=== PATIENT | female | born 1940 | race Caucasian/White ===

== ENCOUNTER 2017-11-28 20:01 | Inpatient (IN) ==
[2017-11-28] MEDS ORDERED: LEVOFLOXACIN INJ 750 MG in PREMIX 1 EACH IV STA (20:27)
[2017-11-28] MEDS ORDERED: ONDANSETRON 4 MG/2 ML VIAL IV STA (20:27)
[2017-11-28] MEDS ORDERED: methylPREDNISolone SOD SUC 125 MG/2 ML VIAL IV STA (20:27)
[2017-11-28] MEDS ORDERED: ALBUTEROL 2.5 MG/3 ML NEB RESP TX SCH (20:30)
[2017-11-28] MEDS ORDERED: LEVOFLOXACIN INJ 150 ML IV ONE (20:53)
[2017-11-28 21:04] LABS: Basophils # 0.1 10*3/uL (0.0-0.2); Basophils % 0.5 % (0.0-0.8); Eosinophils # 0.3 10*3/uL (0.0-0.87); Eosinophils % 1.6 % (0.00-10.9); Hematocrit 32.9 VOL% (35.7-47.0); Hemoglobin 11.2 GM/DL (12.0-16.0); Immature Granulocytes % 2.8 %; Immature Granulocytes Absolute 0.48 #; Lymphocytes # 1.9 10*3/uL (1.4-4.0); Lymphocytes % 11.1 % (21.3-54.2); Mean Corpuscular Hemoglobin 33 PG (27-34); Mean Corpuscular Volume 96.5 FL (87-102); Mean Platelet Volume 9.9 FL (9.6-12.0); Monocytes # 1.9 10*3/uL (0.11-0.8); Neutrophils # 12.5 10*3/uL (1.4-7.4); Platelet Count 268 T/CUMM (130-400); Red Blood Count 3.41 MC/CUMM (3.8-5.5); Red Cell Distribution Width 13.4 % (9.3-17.3); White Blood Count 17.2 T/CUMM (4-12)
[2017-11-28 21:14] LABS: PT Patient Result 10.7 SECS; Partial Thromboplastin Time 30.6 SECS (0-40)
[2017-11-28 21:24] LABS: Alanine Aminotransferase 29 U/L (13-56); Albumin 3.2 G/DL (3.4-5.0); Alkaline Phosphatase 93 U/L (45-117); Aspartate Amino Transferase 17 U/L (0-37); Blood Urea Nitrogen 19 MG/DL (7-18); Calcium 8.8 MG/DL (8.5-10.1); Glucose 123 MG/DL (74-106); Osmolality,Calculated 268.4 MOS/KG (273-304); Potassium 2.9 MMOL/L (3.5-5.1); Sodium 133 MMOL/L (136-145); Total Protein 7.6 G/DL (6.4-8.3)
[2017-11-28] MEDS ORDERED: MORPHINE 4 MG/1 ML VIAL IV PRN (23:48)
[2017-11-28] MEDS ORDERED: DEXTROSE 50% 25 GM/50 ML VIAL IV PRN (23:48)
[2017-11-28] MEDS ORDERED: GLUCAGON 1 MG VIAL IM PRN (23:48)
[2017-11-28] MEDS ORDERED: ONDANSETRON 4 MG/2 ML VIAL IV PRN (23:48)
[2017-11-29] MEDS: SODIUM CHLORIDE 0.9% 1,000 ML IV SCH ×2 (01:42→15:47)
[2017-11-29] MEDS: POTASSIUM CHLORIDE 20 MEQ TABLET PO PRN ×2 (02:57→06:04)
[2017-11-29] MEDS: AZITHROMYCIN INJ 500 MG in SODIUM CHLORIDE 0.9% 250 ML IV SCH (02:57)
[2017-11-29] MEDS: cefTRIAXone 1,000 MG in SYRINGE 1 EACH IV SCH (02:58)
[2017-11-29] MEDS: guaiFENesin 200 MG/10 ML UDCUP PO PRN ×3 (06:04→19:59)
[2017-11-29] MEDS ORDERED: INSULIN REGULAR 100 UNIT/ML SUBCUT SCH (07:30)
[2017-11-29] MEDS ORDERED: metFORMIN 500 MG TABLET PO SCH (08:00)
[2017-11-29 08:22] LABS: Calcium 8.4 MG/DL (8.5-10.1)
[2017-11-29 08:23] LABS: Osmolality,Calculated 270.7 MOS/KG (273-304)
[2017-11-29] MEDS ORDERED: ENOXAPARIN 30 MG/0.3 ML SYRINGE SUBCUT SCH (09:00)
[2017-11-29] MEDS: methylPREDNISolone SOD SUC 40 MG/1 ML VIAL IV SCH ×2 (09:24→21:09)
[2017-11-29] MEDS: PANTOPRAZOLE 40 MG TABLET PO SCH (09:25)
[2017-11-29] MEDS: ESCITALOPRAM 10 MG TABLET PO SCH (09:25)
[2017-11-29] MEDS: DOCUSATE SODIUM 100 MG CAPSULE PO SCH ×2 (09:25→21:04)
[2017-11-29] MEDS: NICOTINE 14 MG/24 HR PATCH TRANSDERM PRN (10:12)
[2017-11-29] MEDS ORDERED: DEXTROSE 50% 25 GM/50 ML VIAL IV PRN (10:25)
[2017-11-29] MEDS ORDERED: GLUCAGON 1 MG VIAL IM PRN (10:25)
[2017-11-29] MEDS ORDERED: ALBUTEROL/IPRATROPIUM 3 ML NEB RESP TX PRN (11:07)
[2017-11-29] MEDS: OSELTAMIVIR 30 MG CAPSULE PO SCH ×2 (12:14→21:04)
[2017-11-29] MEDS: MONTELUKAST 10 MG TABLET PO SCH (12:14)
[2017-11-29] MEDS: INSULIN REGULAR 100 UNIT/ML SUBCUT SCH ×3 (12:15→21:08)
[2017-11-29] MEDS: ALBUTEROL/IPRATROPIUM 3 ML NEB RESP TX SCH ×2 (15:19→19:08)
[2017-11-29] MEDS: FLUTICASONE/SALMETEROL 250-50 DISKUS 14 DOSE INH SCH (21:01)
[2017-11-29] MEDS: ZALEPLON 5 MG CAPSULE PO PRN (21:03)
[2017-11-30] MEDS: guaiFENesin 200 MG/10 ML UDCUP PO PRN ×2 (00:37→22:58)
[2017-11-30] MEDS: cefTRIAXone 1,000 MG in SYRINGE 1 EACH IV SCH (03:00)
[2017-11-30] MEDS: SODIUM CHLORIDE 0.9% 1,000 ML IV SCH ×2 (03:23→16:10)
[2017-11-30] MEDS: AZITHROMYCIN INJ 500 MG in SODIUM CHLORIDE 0.9% 250 ML IV SCH (03:24)
[2017-11-30 05:50] LABS: Basophils % 0.2 % (0.0-0.8); Eosinophils % 0.1 % (0.00-10.9); Hematocrit 30.6 VOL% (35.7-47.0); Hemoglobin 10.2 GM/DL (12.0-16.0); Immature Granulocytes % 5.9 %; Immature Granulocytes Absolute 0.95 #; Lymphocytes # 1.3 10*3/uL (1.4-4.0); Lymphocytes % 8.1 % (21.3-54.2); Mean Corpuscular HGB Conc 33.3 GM/DL (32-36); Mean Corpuscular Hemoglobin 33 PG (27-34); Mean Corpuscular Volume 97.5 FL (87-102); Mean Platelet Volume 10.2 FL (9.6-12.0); Monocytes # 1.2 10*3/uL (0.11-0.8); Monocytes % 7.3 % (1.7-12.7); Neutrophils # 12.7 10*3/uL (1.4-7.4); Neutrophils % 78.4 % (38.7-73.9); Platelet Count 275 T/CUMM (130-400); Red Blood Count 3.14 MC/CUMM (3.8-5.5); Red Cell Distribution Width 13.2 % (9.3-17.3); White Blood Count 16.1 T/CUMM (4-12)
[2017-11-30 06:12] LABS: Albumin 2.6 G/DL (3.4-5.0); Bilirubin,Total 0.8 MG/DL (0.2-1.0); Calcium 8.3 MG/DL (8.5-10.1); Osmolality,Calculated 277.1 MOS/KG (273-304); Potassium 3.9 MMOL/L (3.5-5.1); Total Protein 6.6 G/DL (6.4-8.3)
[2017-11-30 06:45] LABS: Band Neutrophils 2 % (0-10); Lymphocytes 5 % (20-55); Segmented Neutrophils 88 % (50-85); Total Cells Counted 100
[2017-11-30 06:46] LABS: Platelet Estimate Normal
[2017-11-30 06:47] LABS: Hypochromasia Slight
[2017-11-30] MEDS: ALBUTEROL/IPRATROPIUM 3 ML NEB RESP TX SCH ×4 (07:20→23:10)
[2017-11-30] MEDS: OSELTAMIVIR 30 MG CAPSULE PO SCH ×2 (09:03→20:42)
[2017-11-30] MEDS: methylPREDNISolone SOD SUC 40 MG/1 ML VIAL IV SCH ×2 (09:03→20:42)
[2017-11-30] MEDS: ESCITALOPRAM 10 MG TABLET PO SCH (09:03)
[2017-11-30] MEDS: FLUTICASONE/SALMETEROL 250-50 DISKUS 14 DOSE INH SCH ×2 (09:03→20:50)
[2017-11-30] MEDS: ENOXAPARIN 40 MG/0.4 ML SYRINGE SUBCUT SCH (09:03)
[2017-11-30] MEDS: MONTELUKAST 10 MG TABLET PO SCH (09:03)
[2017-11-30] MEDS: DOCUSATE SODIUM 100 MG CAPSULE PO SCH ×2 (09:03→20:42)
[2017-11-30] MEDS: PANTOPRAZOLE 40 MG TABLET PO SCH (09:03)
[2017-11-30] MEDS: INSULIN REGULAR 100 UNIT/ML SUBCUT SCH ×4 (09:03→20:43)
[2017-11-30] MEDS: NICOTINE 14 MG/24 HR PATCH TRANSDERM PRN (09:04)
[2017-11-30] MEDS: ZALEPLON 5 MG CAPSULE PO PRN (20:48)
[2017-12-01] MEDS: cefTRIAXone 1,000 MG in SYRINGE 1 EACH IV SCH (02:50)
[2017-12-01] MEDS: AZITHROMYCIN INJ 500 MG in SODIUM CHLORIDE 0.9% 250 ML IV SCH (02:54)
[2017-12-01] MEDS: guaiFENesin 200 MG/10 ML UDCUP PO PRN ×3 (02:56→16:40)
[2017-12-01] MEDS: SODIUM CHLORIDE 0.9% 1,000 ML IV SCH ×2 (04:09→17:17)
[2017-12-01] MEDS: ALBUTEROL/IPRATROPIUM 3 ML NEB RESP TX SCH ×4 (07:22→19:40)
[2017-12-01] MEDS: NICOTINE 14 MG/24 HR PATCH TRANSDERM PRN (08:27)
[2017-12-01] MEDS: MONTELUKAST 10 MG TABLET PO SCH (08:28)
[2017-12-01] MEDS: PANTOPRAZOLE 40 MG TABLET PO SCH (08:28)
[2017-12-01] MEDS: ESCITALOPRAM 10 MG TABLET PO SCH (08:28)
[2017-12-01] MEDS: ENOXAPARIN 40 MG/0.4 ML SYRINGE SUBCUT SCH (08:28)
[2017-12-01] MEDS: OSELTAMIVIR 30 MG CAPSULE PO SCH ×2 (08:28→20:31)
[2017-12-01] MEDS: INSULIN REGULAR 100 UNIT/ML SUBCUT SCH ×4 (08:28→20:31)
[2017-12-01] MEDS: FLUTICASONE/SALMETEROL 250-50 DISKUS 14 DOSE INH SCH ×2 (08:29→22:20)
[2017-12-01] MEDS: DOCUSATE SODIUM 100 MG CAPSULE PO SCH ×2 (08:30→20:31)
[2017-12-01] MEDS: methylPREDNISolone SOD SUC 40 MG/1 ML VIAL IV SCH (08:31)
[2017-12-01] MEDS: FLUCONAZOLE INJ 200 MG in PREMIX 1 EACH IV SCH (10:43)
[2017-12-01] MEDS: ZALEPLON 5 MG CAPSULE PO PRN (20:31)
[2017-12-02] MEDS: cefTRIAXone 1,000 MG in SYRINGE 1 EACH IV SCH (03:05)
[2017-12-02] MEDS: AZITHROMYCIN INJ 500 MG in SODIUM CHLORIDE 0.9% 250 ML IV SCH (03:50)
[2017-12-02] MEDS: SODIUM CHLORIDE 0.9% 1,000 ML IV SCH ×2 (04:52→08:53)
[2017-12-02 05:32] LABS: Basophils # 0.1 10*3/uL (0.0-0.2); Basophils % 0.6 % (0.0-0.8); Eosinophils # 0.1 10*3/uL (0.0-0.87); Eosinophils % 0.5 % (0.00-10.9); Hematocrit 31.6 VOL% (35.7-47.0); Hemoglobin 10.8 GM/DL (12.0-16.0); Immature Granulocytes % 11.5 %; Immature Granulocytes Absolute 1.63 #; Lymphocytes # 2.7 10*3/uL (1.4-4.0); Lymphocytes % 19.1 % (21.3-54.2); Mean Corpuscular HGB Conc 34.2 GM/DL (32-36); Mean Corpuscular Hemoglobin 33 PG (27-34); Mean Platelet Volume 9.3 FL (9.6-12.0); Monocytes % 6.9 % (1.7-12.7); NRBC # 0.05 10*3/uL; Neutrophils # 8.7 10*3/uL (1.4-7.4); Neutrophils % 61.4 % (38.7-73.9); Platelet Count 273 T/CUMM (130-400); Red Blood Count 3.29 MC/CUMM (3.8-5.5); Red Cell Distribution Width 13.2 % (9.3-17.3); White Blood Count 14.2 T/CUMM (4-12)
[2017-12-02 05:58] LABS: Calcium 8.1 MG/DL (8.5-10.1); Osmolality,Calculated 278.5 MOS/KG (273-304); Potassium 2.9 MMOL/L (3.5-5.1)
[2017-12-02 06:30] LABS: Band Neutrophils 14 % (0-10); Eosinophils 1 % (0-10); Hypochromasia Slight; Lymphocytes 13 % (20-55); Myelocytes 1 %; Platelet Estimate Adequate; Polychromasia Slight; Segmented Neutrophils 63 % (50-85); Total Cells Counted 100
[2017-12-02] MEDS: POTASSIUM CHLORIDE 20 MEQ TABLET PO PRN ×2 (06:44→12:14)
[2017-12-02] MEDS: ALBUTEROL/IPRATROPIUM 3 ML NEB RESP TX SCH ×4 (07:34→21:48)
[2017-12-02] MEDS ORDERED: POTASSIUM CHLORIDE 20 MEQ TABLET PO ONE (07:42)
[2017-12-02] MEDS: INSULIN REGULAR 100 UNIT/ML SUBCUT SCH ×4 (07:59→20:57)
[2017-12-02] MEDS: ESCITALOPRAM 10 MG TABLET PO SCH (08:52)
[2017-12-02] MEDS: DOCUSATE SODIUM 100 MG CAPSULE PO SCH ×2 (08:52→20:27)
[2017-12-02] MEDS: MONTELUKAST 10 MG TABLET PO SCH (08:53)
[2017-12-02] MEDS: methylPREDNISolone SOD SUC 40 MG/1 ML VIAL IV SCH (08:53)
[2017-12-02] MEDS: OSELTAMIVIR 30 MG CAPSULE PO SCH ×2 (08:53→20:27)
[2017-12-02] MEDS: PANTOPRAZOLE 40 MG TABLET PO SCH (08:53)
[2017-12-02] MEDS: ENOXAPARIN 40 MG/0.4 ML SYRINGE SUBCUT SCH (08:53)
[2017-12-02] MEDS: NICOTINE 14 MG/24 HR PATCH TRANSDERM PRN (08:56)
[2017-12-02] MEDS: FLUTICASONE/SALMETEROL 250-50 DISKUS 14 DOSE INH SCH ×2 (08:58→20:28)
[2017-12-02] MEDS: FLUCONAZOLE INJ 200 MG in PREMIX 1 EACH IV SCH (10:26)
[2017-12-02] MEDS: ZALEPLON 5 MG CAPSULE PO PRN (20:57)
[2017-12-03] MEDS: cefTRIAXone 1,000 MG in SYRINGE 1 EACH IV SCH (02:22)
[2017-12-03] MEDS: AZITHROMYCIN INJ 500 MG in SODIUM CHLORIDE 0.9% 250 ML IV SCH (04:07)
[2017-12-03 07:06] LABS: Basophils # 0.1 10*3/uL (0.0-0.2); Basophils % 0.6 % (0.0-0.8); Eosinophils # 0.2 10*3/uL (0.0-0.87); Hematocrit 34.2 VOL% (35.7-47.0); Hemoglobin 11.6 GM/DL (12.0-16.0); Immature Granulocytes % 11.7 %; Mean Corpuscular HGB Conc 33.9 GM/DL (32-36); Mean Corpuscular Hemoglobin 33 PG (27-34); Mean Corpuscular Volume 95.8 FL (87-102); Mean Platelet Volume 9.7 FL (9.6-12.0); Monocytes # 0.9 10*3/uL (0.11-0.8); Monocytes % 6.5 % (1.7-12.7); NRBC # 0.07 10*3/uL; Neutrophils # 8.6 10*3/uL (1.4-7.4); Neutrophils % 59.2 % (38.7-73.9); Platelet Count 297 T/CUMM (130-400); Red Blood Count 3.57 MC/CUMM (3.8-5.5); Red Cell Distribution Width 13.4 % (9.3-17.3); White Blood Count 14.5 T/CUMM (4-12)
[2017-12-03 07:30] LABS: Calcium 8.6 MG/DL (8.5-10.1); Osmolality,Calculated 281.4 MOS/KG (273-304); Potassium 3.5 MMOL/L (3.5-5.1)
[2017-12-03] MEDS: ALBUTEROL/IPRATROPIUM 3 ML NEB RESP TX SCH (07:40)
[2017-12-03 07:50] LABS: Band Neutrophils 2 % (0-10); Hypochromasia 1+; Lymphocytes 23 % (20-55); Myelocytes 1 %; Nucleated Red Blood Cells 1 (0-5); Platelet Estimate Adequate; Segmented Neutrophils 64 % (50-85); Total Cells Counted 100
[2017-12-03] MEDS: INSULIN REGULAR 100 UNIT/ML SUBCUT SCH ×2 (07:59→11:41)
[2017-12-03] MEDS: SODIUM CHLORIDE 0.9% 1,000 ML IV SCH ×2 (09:00→11:34)
[2017-12-03] MEDS: MONTELUKAST 10 MG TABLET PO SCH (09:01)
[2017-12-03] MEDS: PANTOPRAZOLE 40 MG TABLET PO SCH (09:01)
[2017-12-03] MEDS: ENOXAPARIN 40 MG/0.4 ML SYRINGE SUBCUT SCH (09:01)
[2017-12-03] MEDS: ESCITALOPRAM 10 MG TABLET PO SCH (09:01)
[2017-12-03] MEDS: OSELTAMIVIR 30 MG CAPSULE PO SCH (09:01)
[2017-12-03] MEDS: DOCUSATE SODIUM 100 MG CAPSULE PO SCH (09:01)
[2017-12-03] MEDS: FLUTICASONE/SALMETEROL 250-50 DISKUS 14 DOSE INH SCH (09:02)
[2017-12-03] MEDS: methylPREDNISolone SOD SUC 40 MG/1 ML VIAL IV SCH (09:05)
[2017-12-03 11:50] VITALS: BP 163/87
[2017-12-03] MEDS: FLUCONAZOLE INJ 200 MG in PREMIX 1 EACH IV SCH (11:55)
== END 2017-12-03 14:33 | disposition home or self-care (01) | DRG 190 ==
LOC: N.ED 20:01 → SUATTDRO 22:30 → N.EDINP 22:30 → N.TELES 23:10 → N.TELEN 23:17 → N.5E 12-02 18:18
PROVIDERS: ADMIT Internal Medicine; ATTEND Internal Medicine